=== PATIENT | female | born 1975 | race Caucasian/White ===

== ENCOUNTER 2016-12-16 19:53 | Emergency (ER) | payer MEDICAID ==
[~2016-12-16] VITALS: Ht 165.1 cm; Wt 74.5 kg
[~2016-12-16 19:53] MED LIST: ALBU18HF INHALATION; PREN1TAB49
[2016-12-16 20:37] VITALS: Ht 165.1 cm; Wt 74.5 kg
[2016-12-16] MEDS ORDERED: HYDROCODONE/APAP (5/325) TAB PO ONE (22:00)
[2016-12-16] MEDS ORDERED: morphine 4 MG/ML VIAL IV STA (22:29)
[2016-12-16] MEDS ORDERED: ONDANSETRON 4 MG INJ IV STA (22:29)
--- NOTE | 2016-12-16 22:44 | ERD ---
ER Documentation Chief Complaint Date/Time DATE: 12/16/16 TIME: 22:42 Chief Complaint AP/cramping since today s/p miscarriage HPI This 41-year-old female who presents the emergency department today complaining of abdominal pain that started at 2:00 this afternoon. Patient states that she had been 10 weeks and miscarried this morning. States that she did go to her gynecology clinic [facility] and had laboratory work and an ultrasound was told that she had "miscarried". Denies any dysuria, fevers or chills. States she has not taken any medication for the pain. States she has a small amount of vaginal bleeding. States that she has an appointment with Dr. Lomas in 2 days ROS All systems reviewed and are negative except as per history of present illness. Medications Home Meds Active Scripts Hydrocodone/Acetaminophen ([place] 5-325 Tablet) 1 Each Tablet, 1 TAB PO Q6H Y for PAIN, #12 TAB Prov:SAÚL TREVIZO PA-C 12/17/16 Ibuprofen* (Motrin*) 800 Mg Tab, 800 MG PO Q6, #30 TAB Prov:SAÚL TREVIZO PA-C 12/17/16 Albuterol Sulfate* (Ventolin HFA*) 18 Gm Hfa.aer.ad, 2 PUFF INHALATION Q6H, #1 INHALER 0 Refills only use in severe respiratory distress Prov:SKYE PATTERSON PA-C 08/13/15 Reported Medications Vits W-Ca,Fe,Fa(<1MG) () 1 Tab Tablet 09/16/10 Allergies Allergies: Coded Allergies: No Known Drug Allergies (Verified Allergy, Unknown, 12/16/16) PMhx/Soc History of Surgery: Yes (Ceasarian Section x3 ) Anesthesia Reaction: No Hx Neurological Disorder: No Hx Respiratory Disorders: No Hx Cardiac Disorders: No Hx Psychiatric Problems: No Hx Miscellaneous Medical Probl: No Hx Alcohol Use: No Hx Substance Use: No Hx Tobacco Use: No Physical Exam Vitals Vital Signs Date Time Temp Pulse Resp B/P Pulse Ox O2 Delivery O2 Flow Rate FiO2 12/16/16 20:37 99.5 88 18 125/69 100 Physical Exam Const: Mild distress Head: Atraumatic Eyes: Normal Conjunctiva ENT: Normal External Ears, Nose and Mouth. Neck: Full range of motion..~ No meningismus. Resp: Clear to auscultation bilaterally Cardio: Regular rate and rhythm, no murmurs Abd: Soft, pelvic tenderness non distended. Normal bowel sounds. No tenderness at McBurney's. : Pelvic exam with evidence of active vaginal bleeding and clots. No purulent drainage. Skin: No petechiae or rashes Back: No midline or flank tenderness Ext: No cyanosis, or edema Neur: Awake and alert Psych: Normal Mood and Affect Result Diagram: 12/16/162234 Results 24 hrs Laboratory Tests Test 12/16/16 22:35 White Blood Count 15.710^3/ul Red Blood Count 4.4510^6/ul Hemoglobin 13.3g/dl Hematocrit 39.7% Mean Corpuscular Volume 89.2fl Mean Corpuscular Hemoglobin 29.9pg Mean Corpuscular Hemoglobin Concent 33.5g/dl Red Cell Distribution Width 12.7% Platelet Count 15309^3/UL Mean Platelet Volume 11.1fl Neutrophils % 78.7% Lymphocytes % 12.8% Monocytes % 4.4% Eosinophils % 3.5% Basophils % 0.3% Nucleated Red Blood Cells % 0.0/100WBC Neutrophils # (Manual) 12.410^3/ul Lymphocytes # 2.010^3/ul Monocytes # 0.710^3/ul Eosinophils # 0.610^3/ul Basophils # 0.110^3/ul Nucleated Red Blood Cells # 0.010^3/ul Urine Color RED Urine Clarity CLOUDY Urine pH 6.0 Urine Specific [place] 1.017 Urine Ketones TRACEmg/dL Urine Nitrite NEGATIVEmg/dL Urine Bilirubin NEGATIVEmg/dL Urine Urobilinogen NEGATIVEmg/dL Urine Leukocyte Esterase NEGATIVELeu/ul Urine Microscopic RBC > 182/HPF Urine Microscopic WBC 3/HPF Urine Hemoglobin 3+mg/dL Urine Glucose NEGATIVEmg/dL Urine Total Protein 1+mg/dl Beta HCG, Quantitative 8233.8mIU/ml Current Medications Medications (Trade) Dose Ordered Sig/Rolando Route PRN Reason Start Time Stop Time Status Last Admin Dose Admin Acetaminophen/ Hydrocodone Bitart ([place] (5/325)) 1 tab ONCE ONCE PO 12/16/16 22:00 12/16/16 22:01 Cancel Morphine Sulfate (morphine) 4 mg ONCE STAT IV 12/16/16 22:29 12/16/16 22:30 DC 12/16/16 22:35 Ondansetron HCl (Zofran Inj) 4 mg ONCE STAT IV 12/16/16 22:29 12/16/16 22:30 DC 12/16/16 22:35 Hydromorphone HCl (Dilaudid) 1 mg ONCE STAT IV 12/16/16 23:18 12/16/16 23:19 DC 12/16/16 23:37 Ketorolac Tromethamine (Toradol) 30 mg ONCE STAT IV 12/16/16 23:45 12/16/16 23:46 DC 12/16/16 23:50 DIAGNOSTIC IMAGING REPORT Patient: DELMY LAND : 1975 Age: 41 Sex: F MR #: [id number] DOS: 12/16/162155 Ordering MD: SAÚL TREVIZO PA-C Location: [facility] Room/Bed: PROCEDURE: ULTRASOUND OBSTETRICAL CLINICAL INDICATION: 41-year-old female with abdominal pain and cramping. TECHNIQUE: Multiple sonographic images of the pelvis were obtained. The images were reviewed on a PACS workstation. COMPARISON: None. FINDINGS: There is a single intrauterine gestation. The mean sac diameter is 2.91 cm. There is no evidence for a yolk sac. There is a pole present with a crown -rump length of 0.90 cm. This yields an estimated gestational age of 7 weeks and 3 days. The estimated date of delivery is August 01, 2017. There is no evidence for cardiac activity. There is trace free fluid. The ovaries were not visualized bilaterally. No adnexal masses are noted. IMPRESSION: 1. Single intrauterine gestation of approximately 7 weeks 3 days without cardiac activity compatible with early failed . 2. Trace pelvic free fluid. 3. The ovaries were not visualized bilaterally. .Ricky Medina MD, Date Time Electronically viewed and signed by .Ricky Medina MD, on 12/16/2016 22:46 .M/ CC: SAÚL TREVIZO PA-C Procedures/MDM This is a A1 41-year-old female who presents to the emergency department today complaining of vaginal bleeding. Patient states she was approximately 10 weeks when she miscarried this morning. Patient has not been seen here in the emergency department for this issue in the past. Given this I did obtain a complete OB workup. Laboratory work shows an elevated white blood cell count of 15.7. She is not anemic. Platelets are within normal limits. UA is negative for infection. There is greater than 182 red blood cells. Beta quant hCG 8233.8 Rh status O+ Ultrasound shows a single intrauterine gestation of approximately 7 weeks and 3 days without cardiac activity compatible with early failed . There is trace pelvic free fluid. There is a pole but no evidence for yolk sac. Patient symptoms at this time most consistent with pelvic pain and vaginal bleeding in early and and early failed . Patient was given morphine, Zofran here in the emergency department given that patient had a significant amount of pelvic pain. Given patient's significant amount of pain I did place a call to Dr. Garrett who recommended the patient be given Toradol. Patient reported improved pain. Patient symptoms at this time is consistent with vaginal bleeding in early and likely miscarriage. I did explain this to the patient. Patient is afebrile and otherwise well-appearing. I have low suspicion for ectopic , tubo ovarian abscess, ovarian torsion. Patient has no tenderness at McBurney's and have low suspicion for acute surgical abdomen. Patient's elevated white blood cell count likely reactive. I did do a pelvic exam and the patient and there was evidence of active bleeding and passage of clots. I have explained the results to the patient. I have explained to the patient that they need to follow-up with Dr. Lomas as planned on . I explained to the patient that she would continue have some vaginal bleeding and cramping. At this time the patient is stable for discharge and outpatient management. Patient should follow up with their PCP in the next 1-2 days. They may return to the emergency department sooner for any persistent or worsening of symptoms. Patient understood and agreed with the plan. Departure Diagnosis: Primary Impression: Vaginal bleeding in patient at less than 20 weeks gestation Additional Impression: Miscarriage Condition: Fair SAÚL TREVIZO PA-C Dec 16, 2016 22:44
--- NOTE | 2016-12-16 22:46 | RADRPT ---
PROCEDURE: ULTRASOUND OBSTETRICAL CLINICAL INDICATION: 41-year-old female with abdominal pain and cramping. TECHNIQUE: Multiple sonographic images of the pelvis were obtained. The images were reviewed on a PACS workstation. COMPARISON: None. FINDINGS: There is a single intrauterine gestation. The mean sac diameter is 2.91 cm. There is no evidence fo r a yolk sac. There is a pole present with a crown-rump length of 0.90 cm. This yields an est imated gestational age of 7 weeks and 3 days. The estimated date of delivery is August 01, 2017. Ther e is no evidence for cardiac activity. There is trace free fluid. The ovaries were not visualized b ilaterally. No adnexal masses are noted. IMPRESSION: 1. Single intrauterine gestation of approximately 7 weeks 3 days without cardiac activity compatibl e with early failed . 2. Trace pelvic free fluid. 3. The ovaries were not visualized bilaterally. .Ricky Medina MD, Date Time Electronically viewed and signed by .Ricky Medina MD, on 12/16/2016 22:46 .M/
[2016-12-16 22:56] LABS: BASOPHIL # 0.1 10^3/ul (0.0-0.1); BASOPHILS % 0.3 % (0.0-2.0); EOSINOPHILS # 0.6 10^3/ul (0.0-0.5); EOSINOPHILS % 3.5 % (0.0-7.0); HEMATOCRIT 39.7 % (37.0-47.0); HEMOGLOBIN 13.3 g/dl (12.0-16.0); LYMPHOCYTES % 12.8 % (15.0-51.0); MEAN CORPUSCULAR HEMOGLOBIN 29.9 pg (29.0-33.0); MEAN CORPUSCULAR HGB CONC 33.5 g/dl (32.0-37.0); MEAN CORPUSCULAR VOLUME 89.2 fl (82.0-101.0); MEAN PLATELET VOLUME 11.1 fl (7.4-10.4); MONOCYTE # 0.7 10^3/ul (0.3-0.9); MONOCYTES % 4.4 % (0.0-11.0); NEUTROPHILS % 78.7 % (39.0-77.0); PLATELET COUNT 238 10^3/UL (140-415); RED BLOOD COUNT 4.45 10^6/ul (4.20-5.40); RED CELL DISTRIBUTION WIDTH 12.7 % (11.5-14.5); WHITE BLOOD COUNT 15.7 10^3/ul (4.8-10.8)
[2016-12-16 23:11] LABS: ADD UMIC YES; UR ASCORBIC ACID NEGATIVE (NEGATIVE); UR BILIRUBIN (Dip) NEGATIVE (NEGATIVE); UR BLOOD (Dip) 3+ mg/dL (NEGATIVE); UR CLARITY CLOUDY (CLEAR); UR COLOR RED (YELLOW); UR GLUCOSE (Dip) NEGATIVE (NEGATIVE); UR KETONES (Dip) TRACE mg/dL (NEGATIVE); UR LEUKOCYTE ESTERASE (Dip) NEGATIVE Leu/ul (NEGATIVE); UR NITRITE (Dip) NEGATIVE (NEGATIVE); UR RBC > 182 /HPF (0-5); UR SPECIFIC GRAVITY (Dip) 1.017 (1.003-1.030); UR TOTAL PROTEIN (Dip) 1+ mg/dl (NEGATIVE); UR UROBILINOGEN (Dip) NEGATIVE (NEGATIVE)
[2016-12-16] MEDS ORDERED: HYDROmorphONE 1 MG/ML SYG IV STA (23:18)
[2016-12-16] MEDS ORDERED: KETOROLAC 30 MG INJ IV STA (23:45)
[2016-12-17] MEDS ORDERED: IBUP800T25 PO (01:41)
[2016-12-17] MEDS ORDERED: HYDR-906 PO (01:41)
[2016-12-17 02:04] VITALS: BP 120/68; PULSE 71; RESP 17; TEMP 99.1
== END 2016-12-17 02:04 | disposition home or self-care (01) ==
LOC: FTE 19:53
DX: O03.9 Complete or unspecified spontaneous abortion without complication (principal)
CPT/HCPCS: 36415; 76801; 76817; 81001; 84702; 85025; 86900; 86901; 96374; 96375; J1170; J1885; J2270; J2405; Z7502